=== PATIENT | male | born 1985 | race African-American/Black ===

== ENCOUNTER 2017-08-03 23:13 | Emergency (ER) | payer OTHER ==
[2017-08-04] MEDS ORDERED: Tetan/Diph/Pertus SYR(Tdap)* 0.5 ML SYR(BOOSTRIX) use SYR IM ONE (00:15)
[2017-08-04] MEDS ORDERED: Ondansetron INJ* 2 MG/ML VIAL IV ONE (00:23)
[2017-08-04] MEDS ORDERED: Morphine INJ* 4 MG/ML 1 ML SYRINGE (NEW SYRINGE VERSION) IV ONE (00:23)
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
[2017-08-04] MEDS ORDERED: fentaNYL* 50 MCG/ML 2 ML VIAL (100 MCG VIAL) IV SLOW PU ONE (00:59)
[2017-08-04] MEDS ORDERED: Midazolam* 1 MG/ML 10 ML VIAL (10 MG) IV ONE (01:01)
[2017-08-04 03:44] VITALS: BP 120/81
--- NOTE | 2017-08-04 07:29 | RAD ---
INDICATION: Left shoulder injury possible dislocation. TECHNIQUE: 4 views of the left shoulder were obtained. FINDINGS: There is anterior subcoracoid dislocation of the humeral head. There appears to be a Hill-Sachs fracture present. IMPRESSION: 1. ANTERIOR DISLOCATION OF THE HUMERUS. 2. HILL-SACHS FRACTURE.
--- NOTE | 2017-08-04 07:31 | RAD ---
INDICATION: Left humerus injury. TECHNIQUE: 2 views of the left humerus were obtained. FINDINGS: There appears to be anterior dislocation of the humeral head. There is a Hill-Sachs fracture present. No additional fractures are seen. IMPRESSION: ANTERIOR DISLOCATION OF THE HUMERUS WITH HILL-SACHS FRACTURE.
--- NOTE | 2017-08-04 07:42 | RAD ---
INDICATION: Head injury. COMPARISON: There are no prior studies available for comparison. TECHNIQUE: Contiguous axial sections of the brain were obtained from the skull base to the vertex without contrast. FINDINGS: The ventricles, cisterns and sulci are within normal limits. No significant focal abnormality or mass effect is seen. There is no evidence for hemorrhage. No significant focal osseous abnormality is seen. The visualized portion of the paranasal sinuses and mastoid air cells appear clear. IMPRESSION: NO EVIDENCE FOR ACUTE INTRACRANIAL ABNORMALITY.
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
--- NOTE | 2017-08-04 07:49 | RAD ---
INDICATION: Status post shoulder reduction COMPARISON: Same day radiograph acquired at 0034 hours TECHNIQUE: A single AP view of the left shoulder was acquired at 0145 hours FINDINGS: The left shoulder appears to be anatomically aligned in the AP projection. There is no visible fracture. IMPRESSION: INTERVAL REDUCTION OF THE LEFT SHOULDER, NOW ANATOMICALLY ALIGNED IN THE AP PROJECTION.
--- NOTE | 2017-08-04 08:02 | RAD ---
INDICATION: Trauma. COMPARISON: There are no prior studies available for comparison. TECHNIQUE: Contiguous axial sections were obtained from the skull base through the T1 vertebra. Images were reconstructed in the sagittal and coronal planes. FINDINGS: The vertebra are in normal alignment. No prevertebral soft tissue swelling or fracture is seen. At the C4-C5 level there is mild posterior uncinate process spurring. No significant spinal canal or neural foraminal narrowing is seen. The C5-C6 level there is mild posterior uncinate process spurring. No significant spinal canal or neural foraminal narrowing is seen. At the C6-C7 level there is [id number] posterior uncinate process spurring no significant spinal canal or neural foraminal narrowing is seen. IMPRESSION: 1. NO EVIDENCE FOR FRACTURE OR SUBLUXATION. 2. MILD CERVICAL SPONDYLOSIS.
== END 2017-08-04 03:47 | disposition home or self-care (01) ==
LOC: ED 23:13
DX: S01.21XA Laceration without foreign body of nose, initial encounter (principal); S43.005A Unspecified dislocation of left shoulder joint, initial encounter; S05.41XA Penetrating wound of orbit with or without foreign body, right eye, initial encounter; S09.90XA Unspecified injury of head, initial encounter; S01.411A Laceration without foreign body of right cheek and temporomandibular area, initial encounter; R03.0 Elevated blood-pressure reading, without diagnosis of hypertension; Y09 Assault by unspecified means; Y92.149 Unspecified place in prison as the place of occurrence of the external cause; Z87.891 Personal history of nicotine dependence
CPT/HCPCS: 12013; 23650; 70450; 70486; 72125; 90471; 90715; 96374; 96375; 99284; J2250; J2270; J2405; J3010